=== PATIENT | female | born 2000 | race Asian ===

== ENCOUNTER → 2021-09-27 18:03 | Outpatient (CLI) | payer BC, SELFPAY ==
--- NOTE | 2021-09-27 18:18 | RAD_ITS ---
STUDY: X-RAY - ABDOMEN/PELVIS REASON FOR EXAM: Female, 20 years old. ABDOMINAL PAIN TECHNIQUE: Two AP supine views of the abdomen and pelvis. COMPARISON: None. FINDINGS: Normal visualized lung bases. There is an unremarkable bowel gas pattern. There is no demonstrated free abdominal air. The visualized liver, spleen and kidneys are grossly normal in size and morphology. Normal soft tissue structures. Normal visualized osseous structures. RAD/Abdomen Single View IMPRESSION: Normal x-ray examination of the abdomen and pelvis. Electronically Signed: Sebastian Russo MD at 20:19 EST , Service support ,
[2021-09-27 19:14] LABS: Color, Urine Yellow (Yellow); Glucose, Dipstick Normal (Normal); Ketone-Dipstick Negative (Negative); Leukocyte Esterase-Dipstick Negative /ul (Negative); Nitrite-Dipstick Negative (Negative); Occult Blood-Urine 10 /ul (Negative); Protein-Dipstick Negative (Negative); Urine Bilirubin Dipstick Negative (Negative); Urine Clarity Clear (Clear); Urine Urobilinogen Normal (Normal)
[2021-09-27 19:53] LABS: Absolute Neutrophil Count 13.4 X10^3/uL (2.0-7.7); Basophil# 0.04 X10^3/uL; Basophil% 0.2 % (0-1); Eosinophils% 0.6 % (0-5); Hematocrit 40.2 % (37-47); Hemoglobin 13.7 g/dL (12.0-15.0); Lymphocyte % 10.5 % (19-41); Mean Corp Hgb Conc 34.1 g/dL (32-36); Mean Corpuscular Hgb 30.3 pg (27.0-32.0); Mean Corpuscular Volume 88.9 fL (81-99); Mean Platelet Vol. 9.9 fl (6.2-12.0); Monocyte# 0.77 X10^3/uL; Monocyte% 4.8 % (0-10); NRBC Flagged by Analyzer 0 % (0-5); Neutrophil # 13.44 X10^3/uL (2.7-7.7); Neutrophil % 83.4 % (47-70); Platelet Count 327 K/mm3 (150-450); RBC Distribution Width CV 11.6 % (11.6-14.6); RBC Distribution Width SD 37.2 fl (35.1-43.9); Red Blood Count 4.52 M/mm3 (4.2-5.4); White Blood Count 16.1 K/mm3 (4.4-11.0)
[2021-09-27 20:09] LABS: ALB/GLOB Ratio 0.7 RATIO (0.9-2.4); AST(SGOT) 17 U/L (15-37); Alanine Aminotransfer ALT/SGPT 15 U/L (13-56); Albumin, Serum 3.2 g/dL (3.2-5.0); Alkaline Phosphatase 78 U/L (45-117); Anion Gap 7 (5-15); BUN 5 mg/dL (7-18); BUN/Creat Ratio 8.1 RATIO (10-20); Calcium,Total 9.5 mg/dL (8.5-10.1); Chloride 102 mmol/L (98-107); Creatinine, Serum 0.62 mg/dL (0.55-1.02); EST Glomerular Filtration Rate 127 mL/min (>60); Est Glom Filt Rate - Afr Amer 154 mL/min (>60); Globulin 4.6 g/dL (2.2-4.2); Glucose 122 mg/dL (74-106); Potassium 3.9 mmol/L (3.5-5.1); Protein, Total 7.8 g/dL (6.4-8.2); Sodium Level 132 mmol/L (136-145)
== END ==
PROVIDERS: Visit Provider Internal Medicine Rheumatology
DX: R10.30 Lower abdominal pain, unspecified (principal); R30.0 Dysuria; N83.519 Torsion of ovary and ovarian pedicle, unspecified side
CPT/HCPCS: 36415; 74018; 80053; 81002; 85025; 87086; 87088

== ENCOUNTER 2021-09-27 18:23 | Emergency (ER) | payer BC, SELFPAY ==
[2021-09-27 18:25] VITALS: BP 127/73; PULSE 96; RESP 16; TEMP 36.4; O2SAT 98; BMI 29.2
[2021-09-27 20:50] VITALS: BP 148/86; PULSE 95; RESP 18
--- NOTE | 2021-09-27 21:03 | US_ITS ---
PROCEDURE: ULTRASOUND OF THE FEMALE PELVIS - COMPLETE REASON FOR EXAM: Female, 20 years old. pelvic pain-lower- midline TECHNIQUE: Transabdominal TECHNICAL QUALITY: Adequate. COMPARISON: None. FINDINGS: The uterus is anteverted and is in a midline position. The uterus measures 11.5 x 10.3 x 8.3 cm. Central uterine and fundal intramural fibroid is present measuring 6.9 x 6.7 cm. The endometrium measures 5 mm in thickness, and is hyperechoic. There is no demonstrated endometrial mass. Normal uterine cervix. The right ovary is visualized. The right ovary measures 3.7 x 3.5 cm. A 2.4 cm right ovarian simple cyst is present. No mass is present. There is no visualized right adnexal mass or complex lesion. The left ovary is visualized. The left ovary measures 2.5 x 1.9 x 1.9 cm. There is no left ovarian cyst or ovarian mass. There is no visualized left adnexal mass or complex lesion. Normal color vascular flow and Doppler signal is demonstrated in both ovaries. There is minimal fluid in the cul-de-sac. US/Pelvic (Non ) IMPRESSION: Mildly enlarged fibroid uterus Electronically Signed: Sebastian Russo MD at 23:05 EST , Service support ,
--- NOTE | 2021-09-27 21:07 | EDS_ITS ---
HPI HPI - Female History of Present Illness Chief Complaint: Abd Pain Informant: patient Pain Pain: Positive for Pelvic Pain Onset: Days Context: Gradual Onset Timing: Intermittent Quality: Positive for Cramping Current Severity: Mild Maximum Severity: Mild Bleeding Issue: Negative for Vaginal bleeding Associated Symptoms Associated Symptoms: Positive for Frequency; Negative for Hematuria P: 0 Ab: 0 Narrative Narrative: 20-year-old female past medical history of syncope. Presents with 2- day history of suprapubic abdominal and pelvic pain for the last 2 days. Waxes and wanes. Cramping in nature. Increased urinary frequency mild nausea. No vomiting or diarrhea. No constipation. Has had bowel movements today. No fever. No trauma. Last menstrual period was last month around the 10th. She has irregular periods and is on control pills. She is never had any abdominal surgeries. 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 Prior similar symptoms: No Recent Illness/Hospitalization: No PFSH PFSH Medical History Syncope Home Medications drospirenone-ethinyl estradiol 1 tab PO DAILY 09/27/21 [History Last Taken Unknown] Allergy/AdvReac Type Severity Reaction Status Date / Time No Known Allergies Allergy Verified 09/27/21 18:25 Family History no significant family his no significant family history Surgical History no surgical history no surgical history Social History Smoking Status: Never smoker ROS ROS ED ROS Narrative Suprapubic abdominal and pelvic pain. Nausea. Review of Systems ROS Unobtainable: Denies due to encephalopathy Constitutional Constitutional ED: Denies chills or fever(s) Eyes Eyes: Denies change in vision ENT ENT ED: Denies ear pain or sore throat Cardiovascular Cardiovascular: Denies chest pain Respiratory/Chest Respiratory/Chest: Denies cough or dyspnea Gastrointestinal Gastrointestinal: Reports abdominal pain and nausea; Denies constipation, diarrhea, melena or vomiting Genitourinary Genitourinary ED: Reports urinary frequency; Denies dysuria or hematuria Musculoskeletal Musculoskeletal: Denies myalgias Integumentary Denies rash Neurologic Neurologic: Denies headache(s) Psychiatric Psychiatric: Denies depression Endocrine Endocrinology: Denies polyuria Hematologic/Lymphatic Hematologic/Lymphatic: Denies easy bruising Allergic/Immunologic Allergic/Immunologic ED: Denies urticaria EXAM Physical Exam Narrative Exam Narrative: 18-year-old female no acute distress vital signs stable afebrile. Mom present in room. H EENT exam unremarkable. Neck nontender. Lungs clear to auscultation bilaterally. Heart regular rhythm no murmur. Abdomen soft nondistended normal bowel sounds no peritoneal signs. Only area of tenderness is suprapubic. Both right upper right lower quadrants are completely unremarkable nontender. Moving all 4 extremities. Nontender no edema. Back nontender. Neurologically awake and alert. Patient does not look septic or toxic. She is not dehydrated. Const Vital Signs: 09/27/21 18:25 09/27/21 20:50 09/27/21 22:45 Temperature 97.5 F L Temperature Source Temporal Pulse Rate 96 95 Respiratory Rate 16 18 16 Blood Pressure 127/73 H 148/86 H Blood Pressure Mean 91 106 Pulse Ox 98 Oxygen Delivery Method Room Air 09/28/21 00:16 Temperature Temperature Source Pulse Rate Respiratory Rate 16 Blood Pressure Blood Pressure Mean Pulse Ox Oxygen Delivery Method Positive well nourished and well developed; Negative for obese, cachectic, contractures or unkempt General Appearance ED: well developed and NAD; Negative for unkempt, cachectic, contractures or pallor Nutritional Appearance: Negative for cachectic or obese HEENT Reports moist mucous membranes Negative for trauma or tenderness Eyes PERRL and EOMs intact bilaterally General Eye ED: Negative for pale conjunctiva or scleral icterus Neck no lymphadenopathy, supple and no JVD Thyroid: Negative for tender Chest Wall inspection of chest normal and palpation of chest normal Resp normal respiratory effort and clear to auscultation bilaterally Effort and Inspection: Negative for pain with movement Auscultation: Negative for rales, rhonchi or wheezes GI normal to inspection, nondistended, normoactive bowel sounds, soft to palpation, non-distended and no masses; Negative for non-tender GI Narrative: Suprapubic tenderness only. No hernia or mass. Nondistended. Both the right upper and right lower quadrants are unremarkable. Auscultation: normoactive bowel sounds; Negative for hypoactive bowel sounds Palpation: tender; Negative for guarding or rigid Back/Spine no CVA tenderness General Back: Negative for CVA tenderness Cervical Spine: Negative for cervical spine tenderness Extremity normal to inspection and full ROM General Extremety ED: Negative for edema or tenderness General Extremity: Negative for edema Neuro oriented x3 Sensorium / Orientation: alert, oriented to person, oriented to place and oriented to time Motor Exam: strength 5/5 throughout Psych mental status grossly normal Appearance: Negative for unkempt Mood & Affect: Negative for depressed or tearful Skin no rashes or lesions noted and no wounds General Skin Exam: Negative for jaundice or pallor MDM MDM MDM Narrative Medical decision making narrative: Young female suprapubic abdominal and pelvic pain. Urinalysis, urine and ultrasound being obtained. There is a family friend is a track laying equipment operator that was ordering tests in the waiting room she ordered a KUB which I reviewed as has the radiologist which is unremarkable. No signs of obstruction no significant stool. Currently the patient does not need anything for pain or nausea. Repeat exam patient is resting comfortably in bed at 1045. She remains only to have pain in her suprapubic region. Nothing in the right lower quadrant. We are awaiting the ultrasound results. Pelvic exam was not done in the emergency department because the patient has never had a pelvic exam and she had difficulty with just the ultrasound vaginal probe Ultrasound of the pelvis showed right small ovarian cyst and possibly a fibroid. With the patient's elevated white count I did obtain a CT of the abdomen pelvis which showed a distended fluid-filled uterus which may be secondary to a cervical blockage. I discussed this with the family. Also discussed this with Dr. Sharlene Garland on-call for [facility]. She will follow up the patient in her office in the next 1 to 4 to 48 hours. Family is comfortable with the plan. She is afebrile does not look toxic at all than she needs any antibiotics at this time. Lab Data Attestation: I reviewed the patient's lab results. Lab results narrative: Urine test negative. Urinalysis is negative. Outpatient white count was ordered by another physician which showed a white count of 16,000. Hemoglobin hematocrit were unremarkable. Electrolytes are unremarkable. Again that was ordered as an outpatient. Labs: Laboratory Results - last 24 hr 09/27/21 09/27/21 18:55 18:55 Urine Color Cancelled Yellow Urine Clarity Cancelled Sl. Cloudy Urine pH Cancelled 7.0 Ur Specific Cameron Cancelled 1.010 U Specif Grav (Refrac) Cancelled Urine Protein Cancelled Negative Urine Glucose (UA) Cancelled Normal Urine Ketones Cancelled Negative Urine Occult Blood Cancelled 25 H Urine Nitrite Cancelled Negative Urine Bilirubin Cancelled Negative Urine Urobilinogen Cancelled Normal Ur Leukocyte Esterase Cancelled Negative Urine RBC Cancelled 0 SEEN Urine WBC Cancelled 0 SEEN Ur Squamous Epith Cells Cancelled 0 SEEN Ur Transition Epith Cell Cancelled Ur Renal Epithelial Cell Cancelled Calcium Oxalate Crystal Cancelled Uric Acid Crystals Cancelled Triple Phos Crystals Cancelled Other Crystals Cancelled Amorphous Sediment Cancelled Urine Bacteria Cancelled 0 SEEN Hyaline Casts Cancelled Fine Granular Casts Cancelled Coarse Granular Casts Cancelled Waxy Casts Cancelled RBC Casts Cancelled WBC Casts Cancelled Urine Mucus Cancelled 0 SEEN Urine Trichomonas Cancelled Urine Yeast Cancelled Urine Test Negative Radiography Diagnostic Testing: Clinical Impression(s) from Imaging Studies Pelvis Ultrasound 09/27/21 21:03 IMPRESSION: Mildly enlarged fibroid uterus Electronically Signed: Sebastian Russo MD at 23:05 EST , Service support , Abdomen/Pelvis CT 09/27/21 23:18 IMPRESSION: There is a complex fluid distended appearance of the uterine lumen. Consider abnormal fluid collection such hematometra, underlying possible endocervical stricture or blockage. The potentially involuting fibroid or retained products or infection. Given avascular appearance fibroid is thought to be less likely. According to the pelvic ultrasound the last menstrual period was 08/11/2021, recommend correlation with beta hCG. Electronically Signed: Cami Welsh MD at 0:32 EST Tel , Service support , ADDENDUM: 09/28/21 0044 IMPRESSION: There is a complex fluid distended appearance of the uterine lumen. Consider abnormal fluid collection such hematometra, underlying possible endocervical stricture or blockage. The potentially involuting fibroid or retained products or infection. Given avascular appearance fibroid is thought to be less likely. According to the pelvic ultrasound the last menstrual period was 08/11/2021, recommend correlation with beta hCG. N.B. : The above Results were Read Back by Cami Welsh MD to Dr. Ivan MD, and understanding confirmed on 09/28/2021 00:37:40 (ET). Electronically Signed: Cami Welsh MD at 0:32 EST Tel , Service support , Discharge Plan Triage Chief Complaint: Abd Pain ED Provider: David Love Dx/Rx/DC Orders Clinical Impression: Pelvic pain, Fibroid, uterine Prescriptions: No Action drospirenone-ethinyl estradiol 3-0.02 mg tablet 1 tab PO DAILY RF: 0 Primary Care Provider: Care Physician,No Primary Referrals: Sharlene Garland MD [STAFF PHYSICIAN] - 1 Week if not improving Care Physician,No Primary [Primary Care Provider] - Activity Restrictions/Additional Instructions: Pelvic pain due to most likely secondary to fluid-filled distended uterus. I discussed this with the [facility] on-call tonight Dr. Sharlene Garland with the [facility]. Call her office this morning and they will get your daughter in either today or tomorrow. This is very important because they may need to do a procedure. Motrin for pain and Tylenol. Disposition Disposition: Home, Self Care
[2021-09-27 21:22] LABS: Internal QC Validated? YES +Cl - CLEAR BKGD; Pregnancy, Urine Negative Negative
--- NOTE | 2021-09-27 21:46 | ED.RN ---
prosthetic lab technician called to notifiy this RN that she has given the patient some water to drink for pelvic ultrasound for better visualization. Will be at ultrasound for awhile
[2021-09-27 22:45] VITALS: RESP 16
[2021-09-27 22:46] LABS: Bacteria 0 SEEN /hpf (None Seen); Mucous, Urine 0 SEEN /hpf (<or=2+); Red Blood Cells-Urine 0 SEEN /hpf (0-5); Squamous Epithelial Cells - UA 0 SEEN /hpf (5-10); White Blood Cells 0 SEEN /hpf (0-5)
[2021-09-27 22:47] LABS: Color, Urine Yellow (Yellow); Glucose, Dipstick Normal (Normal); Ketone-Dipstick Negative (Negative); Leukocyte Esterase-Dipstick Negative /ul (Negative); Nitrite-Dipstick Negative (Negative); Occult Blood-Urine 25 /ul (Negative); Protein-Dipstick Negative (Negative); Urine Bilirubin Dipstick Negative (Negative); Urine Clarity Sl. Cloudy (Clear); Urine Urobilinogen Normal (Normal)
[2021-09-27] MEDS: Ibuprofen 600 MG Tablet PO (22:47)
--- NOTE | 2021-09-27 23:18 | CT_ITS ---
We are attempting to reach an attending provider to discuss findings. An addendum with communication details will be sent when the communication is complete. STUDY: CT ABDOMEN AND PELVIS WITH CONTRAST REASON FOR EXAM: Female, 20 years old. Suprapubic abd pain RADIATION DOSAGE (If Supplied By Facility): CTDIvol = ( 13.30 ) mGy, DLP = ( 794.17 ) mGycm TECHNIQUE: Transaxial images were obtained from the dome of the diaphragm to the symphysis pubis without oral contrast. IV 100mL [id number]-[id number] was administered. Sagittal and coronal images were reconstructed. Individualized dose optimization techniques were used for this CT. COMPARISON: 09/27/2021 ultrasound pelvis FINDINGS: The visualized lung bases are unremarkable. The visualized portions of the heart are within normal limits. Normal liver. Normal gallbladder and extrahepatic biliary system. Normal spleen. Normal pancreas. Normal bilateral adrenal glands. Normal right kidney. Normal left kidney. Normal visualized stomach. Normal small intestine. Normal colon. The appendix is visualized and appears normal. Normal abdominal aorta. Normal inferior vena cava. Normal retroperitoneum. Normal urinary bladder. There is a fluid distended appearance of the endometrium. The uterine fundus is distended up to 8.9 x 7.5 x 8.2 cm. The fluid density is within the range of complex fluid. The recent ultrasound shows a heterogeneous avascular fluid collection within the midline uterus. There is a small amount of free fluid in the pelvis. Normal abdominal wall. Normal osseous structures. CT/Abdomen/Pelvis W IV Cont ONLY IMPRESSION: There is a complex fluid distended appearance of the uterine lumen. Consider abnormal fluid collection such hematometra, underlying possible endocervical stricture or blockage. The potentially involuting fibroid or retained products or infection. Given avascular appearance fibroid is thought to be less likely. According to the pelvic ultrasound the last menstrual period was 08/11/2021, recommend correlation with beta hCG. Electronically Signed: Cami Welsh MD at 0:32 EST Tel , Service support ,
[2021-09-28 00:16] VITALS: RESP 16
[2021-09-28 01:04] VITALS: BP 142/65; PULSE 82; RESP 18
== END 2021-09-28 01:04 | disposition home or self-care (01) ==
PROVIDERS: Emergency Provider Emergency Medicine
DX: D25.9 Leiomyoma of uterus, unspecified (principal); R10.2 Pelvic and perineal pain; Z79.3 Long term (current) use of hormonal contraceptives
CPT/HCPCS: 74177; 76856; 81001; 81025; 93976; 99284; Q9967; A4216